=== PATIENT | female | born 1995 | race Caucasian/White ===

== ENCOUNTER → 2017-10-07 | Outpatient (CLI) | payer BC, MEDICAID | LOC: M RAD 07:45 | DX: Z32.01 Encounter for pregnancy test, result positive (principal) | CPT/HCPCS: 76801 ==

== ENCOUNTER 2017-11-01 16:39 | Emergency (ER) | payer BC, MEDICAID ==
[2017-11-01 18:05] LABS: BASO % 0.1 % (0.0-1.0); EOS # 0.1 10^3/uL (0.0-0.50); EOS % 0.5 % (0.0-3.0); HEMATOCRIT 36.1 % (36.0-47.0); HEMOGLOBIN 12.5 g/dl (12.0-15.5); IMMATURE GRANULOCYTE % 0.4 % (0-3.0); LYMPH # 2.7 10^3/uL (1.5-6.5); LYMPH % 23.9 % (24.0-44.0); MEAN CORPUSCULAR HEMOGLOBIN 29.8 pg (27.0-33.0); MEAN CORPUSCULAR HGB CONC 34.6 g/dl (32.0-36.5); MONO # 0.6 10^3/uL (0.0-0.8); MONO % 5.5 % (0.0-5.0); NEUTROPHILS # 7.8 10^3/uL (1.8-7.7); NEUTROPHILS % 69.6 % (36.0-66.0); PLATELET COUNT, AUTOMATED 266 10^3/uL (150-450); RED CELL DISTRIBUTION WIDTH 12.6 % (11.5-14.5); WHITE BLOOD COUNT 11.2 10^3/uL (4.0-10.0)
[2017-11-01 18:39] LABS: HCG, SERUM QUANTITATIVE 44538 MIU/ML
[2017-11-01 19:23] LABS: AMORPHOUS SEDIMENT RFX SMALL (NEGATIVE); KETONE, URINE AUTO RFX TRACE mg/dL (NEGATIVE); LEUKOCYTE ESTERASE UR AUTO RFX NEGATIVE (NEGATIVE); MUCUS, URINE RFX SMALL (NEGATIVE); NITRITE, URINE AUTO RFX NEGATIVE (NEGATIVE); RBC, URINE AUTO RFX 1 /HPF (0-3); SPECIFIC GRAVITY UR AUTO RFX 1.006 (1.002-1.035); SQUAM EPITHELIAL CELL UR AURFX 0 /HPF (0-6); WBC, URINE AUTO RFX 1 /HPF (0-3)
[2017-11-01 19:51] LABS: CHLAMYDIA DNA AMPLIFICATION NEGATIVE (NEGATIVE); GC DNA AMPLIFICATION NEGATIVE (NEGATIVE)
== END 2017-11-01 19:31 | disposition home or self-care (01) ==
LOC: M ED 16:39
DX: O26.851 Spotting complicating pregnancy, first trimester (principal); O24.419 Gestational diabetes mellitus in pregnancy, unspecified control; O15.00 Eclampsia complicating pregnancy, unspecified trimester; O99.281 Endocrine, nutritional and metabolic diseases complicating pregnancy, first trimester; Z3A.12 12 weeks gestation of pregnancy; Z79.899 Other long term (current) drug therapy; Z79.82 Long term (current) use of aspirin
CPT/HCPCS: 76801

== ENCOUNTER → 2017-11-27 | Outpatient (CLI) | payer BC, MEDICAID ==
[2017-11-27 14:46] LABS: CREATININE, URINE 71.6 MG/DL; URINE TOTAL PROTEIN 20.3 MG/DL (0-12)
[2017-11-27 21:12] LABS: CREATININE, SERUM 0.4 MG/DL (0.6-1.0)
[2017-11-27 21:14] LABS: CREATININE CLEARANCE, URINE 186.5 ML/MIN (75-115); TOTAL PROTEIN 24 HOUR URINE 304.5 MG/24HR (50-150); TOTAL VOLUME, URINE 1500 ML
== END ==
LOC: M LAB 13:31
DX: Z34.82 Encounter for supervision of other normal pregnancy, second trimester (principal); Z3A.00 Weeks of gestation of pregnancy not specified
CPT/HCPCS: 82575

== ENCOUNTER → 2017-12-18 | Outpatient (CLI) | payer BC, MEDICAID | LOC: M RAD 12:38 | DX: Z34.82 Encounter for supervision of other normal pregnancy, second trimester (principal) ==

== ENCOUNTER → 2018-01-11 | Outpatient (CLI) | payer BC, MEDICAID | LOC: M RAD 17:14 | DX: Z34.83 Encounter for supervision of other normal pregnancy, third trimester (principal) | CPT/HCPCS: 76816 ==

== ENCOUNTER → 2018-02-15 | Outpatient (CLI) | payer BC, MEDICAID | LOC: M RAD 11:55 | DX: Z34.82 Encounter for supervision of other normal pregnancy, second trimester (principal); Z36.89 Encounter for other specified antenatal screening; Z3A.28 28 weeks gestation of pregnancy | CPT/HCPCS: 76816 ==

== ENCOUNTER → 2018-02-18 | Outpatient (CLI) | payer BC, MEDICAID | LOC: M RAD 06:40 | DX: O32.1XX0 Maternal care for breech presentation, not applicable or unspecified (principal); Z36.89 Encounter for other specified antenatal screening; Z3A.28 28 weeks gestation of pregnancy | CPT/HCPCS: 76819 ==

== ENCOUNTER → 2018-02-26 | Outpatient (CLI) | payer BC, MEDICAID | LOC: M RAD 08:41 | DX: Z34.82 Encounter for supervision of other normal pregnancy, second trimester (principal); Z3A.29 29 weeks gestation of pregnancy | CPT/HCPCS: 76815 ==

== ENCOUNTER → 2018-03-05 | Outpatient (CLI) | payer BC, MEDICAID | LOC: M RAD 08:32 | DX: O26.843 Uterine size-date discrepancy, third trimester (principal); Z3A.30 30 weeks gestation of pregnancy; Z36.87 Encounter for antenatal screening for uncertain dates | CPT/HCPCS: 76819 ==

== ENCOUNTER → 2018-03-12 | Outpatient (CLI) | payer BC, MEDICAID | LOC: M RAD 12:47 | DX: O26.843 Uterine size-date discrepancy, third trimester (principal); Z3A.30 30 weeks gestation of pregnancy | CPT/HCPCS: 76815 ==

== ENCOUNTER 2018-03-26 18:16 | Outpatient (CLI) | payer BC, MEDICAID ==
[2018-03-26] MEDS: CALCIUM CARBONATE 500 MG CHEW U/D PO (18:58)
== END 2018-03-26 19:19 | disposition home or self-care (01) ==
LOC: M LDO 18:16
DX: Z34.83 Encounter for supervision of other normal pregnancy, third trimester (principal); Z3A.33 33 weeks gestation of pregnancy
CPT/HCPCS: 59025

== ENCOUNTER → 2018-03-26 | Outpatient (CLI) | payer BC, MEDICAID | LOC: M RAD 11:15 | DX: O26.843 Uterine size-date discrepancy, third trimester (principal); Z3A.33 33 weeks gestation of pregnancy | CPT/HCPCS: 76815 ==

== ENCOUNTER → 2018-04-02 | Outpatient (CLI) | payer BC, MEDICAID | LOC: M RAD 07:55 | DX: Z36.9 Encounter for antenatal screening, unspecified (principal); O26.843 Uterine size-date discrepancy, third trimester; Z3A.34 34 weeks gestation of pregnancy | CPT/HCPCS: 76819 ==

== ENCOUNTER → 2018-04-08 | Outpatient (CLI) | payer BC, MEDICAID | LOC: M RAD 10:03 | DX: O26.843 Uterine size-date discrepancy, third trimester (principal); Z3A.35 35 weeks gestation of pregnancy | CPT/HCPCS: 76815 ==

== ENCOUNTER → 2018-04-16 | Outpatient (REF) | payer BC, MEDICAID | LOC: M LAB REF 12:56 | DX: O09.213 Supervision of pregnancy with history of pre-term labor, third trimester (principal) | CPT/HCPCS: 87081 ==

== ENCOUNTER → 2018-04-16 | Outpatient (CLI) | payer BC, MEDICAID | LOC: M RAD 09:34 | DX: O26.843 Uterine size-date discrepancy, third trimester (principal); Z3A.36 36 weeks gestation of pregnancy | CPT/HCPCS: 76819 ==

== ENCOUNTER → 2018-04-22 | Outpatient (CLI) | payer BC, MEDICAID | LOC: M RAD 10:00 | DX: O26.843 Uterine size-date discrepancy, third trimester (principal); Z3A.37 37 weeks gestation of pregnancy | CPT/HCPCS: 76815 ==

== ENCOUNTER → 2018-04-30 | Outpatient (CLI) | payer BC, MEDICAID | LOC: M RAD 14:20 | DX: O26.843 Uterine size-date discrepancy, third trimester (principal); Z3A.36 36 weeks gestation of pregnancy | CPT/HCPCS: 76819 ==

== ENCOUNTER 2018-05-04 16:08 | Inpatient (IN) | payer BC, MEDICAID ==
[2018-05-04 17:50] LABS: HEMATOCRIT 31.1 % (36.0-47.0); HEMOGLOBIN 10.7 g/dl (12.0-15.5); MEAN CORPUSCULAR HEMOGLOBIN 29.6 pg (27.0-33.0); MEAN CORPUSCULAR HGB CONC 34.4 g/dl (32.0-36.5); MEAN CORPUSCULAR VOLUME 86.1 fl (80.0-96.0); PLATELET COUNT, AUTOMATED 226 10^3/uL (150-450); RED BLOOD COUNT 3.61 10^6/uL (4.00-5.40); RED CELL DISTRIBUTION WIDTH 13.2 % (11.5-14.5); WHITE BLOOD COUNT 8.2 10^3/uL (4.0-10.0)
[2018-05-04] MEDS ORDERED: OXYTOCIN 30 UNITS IN 0.9% NaCl 500ML IV BAG (J2590) As Ordered (18:47)
[2018-05-04] MEDS: LR 1,000 ML IV (18:50)
[2018-05-04] MEDS: OXYTOCIN DRIP 30 UNITS in APPROPRIATE DILUENT 1 EA IV (18:51)
[2018-05-05] MEDS: MORPHINE 10 MG/ML 1ML VIAL (J2270) IV (00:30)
[2018-05-05] MEDS: MORPHINE 10 MG/ML 1ML VIAL (J2270) SC (00:30)
[2018-05-05 00:36] LABS: ALT/SGPT 18 U/L (12-78); AST/SGOT 17 U/L (7-37); BILIRUBIN,TOTAL 0.1 MG/DL (0.2-1.0); CREATININE FOR GFR 0.56 MG/DL (0.55-1.30); GLOMERULAR FILTRATION RATE > 60.0 (>60); LDH LACTATE DEHYDROGENASE 153 U/L (84-246); URIC ACID 4.7 MG/DL (2.6-6.0)
[2018-05-05] MEDS: PROMETHAZINE INJ 25 MG/ML VIAL (J2550) IV (00:41)
[2018-05-05] MEDS: LR 1,000 ML IV ×4 (00:41→21:00)
[2018-05-05] MEDS ORDERED: ONDANSETRON 4MG/2ML VIAL (J2405) As Ordered ×2 (08:11→16:12)
[2018-05-05] MEDS: ONDANSETRON 4MG/2ML VIAL (J2405) IV (08:17)
[2018-05-05] MEDS ORDERED: OXYTOCIN INJ 10 UNITS/ML VIAL (J2590) As Ordered ×3 (16:10→16:35)
[2018-05-05] MEDS ORDERED: dexameTHASONE 4 MG/ML 1ML VIAL (J1100) As Ordered (16:12)
[2018-05-05] MEDS ORDERED: KETOROLAC 60 MG/2 ML VIAL (J1885) As Ordered (16:12)
[2018-05-05] MEDS ORDERED: BUPIVACAINE/DEXTROSE 0.75% 2 ML AMP As Ordered (16:14)
[2018-05-05] MEDS: BICITRA 30ML SOLN UDC PO (16:19)
[2018-05-05] MEDS ORDERED: MORPHINE PRES-FREE INJ 10 MG/10 ML VIAL (J2274) As Ordered (16:24)
[2018-05-05] MEDS ORDERED: NALBUPHINE HCL 10 MG/ML AMP (J2300) IV ×2 (16:52→18:30)
[2018-05-05] MEDS ORDERED: METOCLOPRAMIDE INJ 10MG/2ML VIAL (J2765) IV (16:52)
[2018-05-05] MEDS ORDERED: ONDANSETRON 4MG/2ML VIAL (J2405) IV ×3 (16:52→18:30)
[2018-05-05] MEDS ORDERED: NALOXONE INJ 0.4 MG/1 ML VIAL (J2310) IV ×2 (16:52)
[2018-05-05] MEDS ORDERED: ePHEDrine SULFATE 25 MG/5 ML(5MG/ML) SYRINGE As Ordered (17:07)
[2018-05-05] MEDS ORDERED: PHENYLephrine HCL 500 MCG/5 ML (100MCG/ML) SYRINGE (J2370) As Ordered (17:07)
[2018-05-05] MEDS ORDERED: OXYTOCIN 30 UNITS IN 0.9% NaCl 500ML IV BAG (J2590) As Ordered (18:14)
[2018-05-05] MEDS ORDERED: MEASLES,MUMPS,RUBELLA VACCINE INJ (MMR-II) (90707) SC (18:15)
[2018-05-05] MEDS ORDERED: PROMETHAZINE 25 MG TAB PO (18:15)
[2018-05-05] MEDS ORDERED: RHOGAM 300 MCG (1500 IU) INJ (J2790) IM (18:15)
[2018-05-05] MEDS ORDERED: PERCOCET 5MG/325MG TAB PO (18:30)
[2018-05-05] MEDS ORDERED: fentaNYL 100 MCG/2 ML INJECTION (J3010) IV (18:30)
[2018-05-05] MEDS ORDERED: MEPERIDINE INJ 25 MG/ML VIAL (J2175) IV (18:30)
[2018-05-05] MEDS ORDERED: HYDROMORPHONE HCL 0.5 MG/ 0.5 ML SYRINGE (J1170 PER 1) IV (18:30)
[2018-05-05] MEDS: OXYTOCIN DRIP 30 UNITS in APPROPRIATE DILUENT 1 EA IV (18:39)
[2018-05-05] MEDS: DOCUSATE SODIUM 100 MG CAP PO (21:00)
[2018-05-05] MEDS: KETOROLAC 30 MG/ML VIAL (J1885) IV (22:00)
[2018-05-06] MEDS: KETOROLAC 30 MG/ML VIAL (J1885) IV ×2 (03:44→09:27)
[2018-05-06] MEDS: LR 1,000 ML IV ×3 (05:00→21:00)
[2018-05-06 07:12] LABS: HEMATOCRIT 32.4 % (36.0-47.0); HEMOGLOBIN 10.7 g/dl (12.0-15.5); MEAN CORPUSCULAR HEMOGLOBIN 29.4 pg (27.0-33.0); PLATELET COUNT, AUTOMATED 160 10^3/uL (150-450); RED BLOOD COUNT 3.64 10^6/uL (4.00-5.40); RED CELL DISTRIBUTION WIDTH 13.2 % (11.5-14.5); WHITE BLOOD COUNT 10.9 10^3/uL (4.0-10.0)
[2018-05-06] MEDS: PRENATAL VITAMINS CHEWABLE TABLET PO (09:26)
[2018-05-06] MEDS: DOCUSATE SODIUM 100 MG CAP PO ×2 (09:26→21:03)
[2018-05-06] MEDS: SIMETHICONE 80 MG CHEW TAB PO (16:35)
[2018-05-06] MEDS: PERCOCET 5MG/325MG TAB PO ×2 (16:36→21:04)
[2018-05-06] MEDS: IBUPROFEN 800 MG TAB PO (19:19)
[2018-05-07] MEDS: IBUPROFEN 800 MG TAB PO ×2 (02:02→10:10)
[2018-05-07] MEDS: PERCOCET 5MG/325MG TAB PO (04:51)
[2018-05-07] MEDS: LR 1,000 ML IV (05:00)
[2018-05-07] MEDS: DOCUSATE SODIUM 100 MG CAP PO (07:34)
[2018-05-07] MEDS: PRENATAL VITAMINS CHEWABLE TABLET PO (07:46)
[2018-05-07] MEDS: ADACEL/BOOSTRIX VACCINE (DIPHTH/PERTUSS/ACELL/TETANUS)0.5ML SYR (90715) IM (07:49)
[2018-05-07] MEDS: INFLUENZA QUADRIVALENT PF VACCINE 0.5ML SYRINGE (90686) IM (07:52)
== END 2018-05-07 12:05 | disposition home or self-care (01) | DRG 540 ==
LOC: M LDI 16:08 → M OBS 05-05 19:00
PROC: 10D00Z1 Extraction of Products of Conception, Low, Open Approach (ICD-10-PCS; principal; 2018-05-05 16:40)
PROC: 3E033VJ Introduction of Other Hormone into Peripheral Vein, Percutaneous Approach (ICD-10-PCS; 2018-05-05 16:40)
DX: O36.5930 Maternal care for other known or suspected poor fetal growth, third trimester, not applicable or unspecified (principal); O13.4 Gestational [pregnancy-induced] hypertension without significant proteinuria, complicating childbirth; O34.211 Maternal care for low transverse scar from previous cesarean delivery; O61.0 Failed medical induction of labor; Z37.0 Single live birth; Z3A.39 39 weeks gestation of pregnancy

== ENCOUNTER → 2018-08-17 | Outpatient (REF) | payer BC, MEDICAID ==
[~2018-08-17] MED LIST: ASPI81TA85 PO; BIRTH CONTROL PILL PO; IBUP80TA PO; IRON27TA2 PO; OXYC1TAB23 PO; PERCOCET PO; PRENTAB9 PO; TUMS500C PO; ZANT150T15 PO; [UNRECOGNIZED DRUG - OTHER] PO
== END ==
LOC: M LAB REF 19:23
PROVIDERS: ATTEND Physician Assistant Medical
DX: J02.9 Acute pharyngitis, unspecified (principal)

== ENCOUNTER 2020-04-02 16:15 | Emergency (ER) | payer BC, MEDICAID ==
[~2020-04-02] VITALS: Ht 157.5 cm; Wt 108.6 kg
[2020-04-02 16:15] VITALS: BP 143/86
[~2020-04-02 16:15] MED LIST changes: -ASPI81TA85 PO; +ASPI81TA86 PO
[2020-04-02] MEDS ORDERED: [UNRECOGNIZED DRUG - OTHER] (16:26)
[2020-04-02] MEDS ORDERED: pepcid (16:26)
== END 2020-04-02 17:00 | disposition admitted as inpatient to this hospital (09) ==
LOC: M ED 16:15
DX: Z53.21 Procedure and treatment not carried out due to patient leaving prior to being seen by health care provider (principal); R07.9 Chest pain, unspecified

== ENCOUNTER 2020-04-02 16:58 | Outpatient (CLI) | payer BC, MEDICAID, OTHER ==
[~2020-04-02] VITALS: Ht 157.5 cm; Wt 108.3 kg
[~2020-04-02 16:58] MED LIST changes: +[UNRECOGNIZED DRUG - OTHER]; +pepcid
[2020-04-02 17:23] VITALS: BP 129/80
[2020-04-02 17:42] VITALS: BP 120/78
[2020-04-02 18:40] VITALS: BP 135/77
--- NOTE | 2020-04-02 19:08 | IPNPDOC ---
Text Note Date of Service The patient was seen on 04/02/20. NOTE Subjective: Yolanda is a 25-year-old female who is a at 37 weeks gestation with an CATRINA of 04/23/20 presents to L&D with complaints of elevated BP's and chest pain that occurs intermittently and radiates to her right shoulder. She reports this has been occurring for a few weeks at night but states it has gotten slightly worse tonight. She does reports occasional contractions and a ctive movement. She denies vaginal bleeding or leaking of fluid. She does has reflux and has taken Pepcid. Reports her pain occurs mainly at night. She receives care in [place]. No records are available to review. Her has been complicated by a history of 2 prior sections, history of A1GDM, and history of severe preeclampsia. Prior pregnancies: 01/13/2017: section: breech, GDM and severe preeclampsia at 34.5 weeks, male 5 lbs 1 oz. 05/05/2018: section at 39 .1 weeks gestation of living male weighting 6 lbs 5 oz. Medical history: obesity, GERD-taking Pepcid and anemia during Surgical history: tonsils and adenoids; eyelid surgery Family history: father with HTN; maternal aunt with lung cancer and maternal grandfather with lung cancer Social history: single, with FOB, homemaker. Denies history of alcohol abuse, drug abuse and reports she has never smoked. Objective: VS stable. FHR 125, moderate variability, positive accelerations, no decelerations. Contractions: occasional. SVE: closed/thick with no show. A+O x3. Respiratory rate is regular and CTA bilaterally. Cardiovascular: slight murmur noted with slight tachycardia. Abdomen: gravid and non-tender to palpation. Extremities: generalized edema, no pitting edema, no clonus, and +2 reflexes. Assessment: IUP at 37 weeks, GERD resulting in chest pain, not in labor. Plan: EKG ordered. Bicitra ordered. UA sent. EKG is slightly abnormal but normal for with tachycardia (103 bpm) and QRS-t angle changes. The hospitalist was notified (Dr. Perez) to review EKG and reported that it was a normal variation during . Dr. Tom was notified of all findings. She reports her chest pain improved and has gone away after taking Bicitra 30 mg PO. She has an appointment on with her OB. Patient discharged to home with precautions. Reviewed access to care, kick count, labor signs, preeclamptic signs, and danger signs to report. She is to follow-up for her routine OB appointment. VS,Fishbone, I+O VS, Fishbone, I+O Vital Signs Vital Signs Label Value Date Time Patient Temperature 98.2 degrees F 04/02/20 172 Temperature Source Temporal 04/02/20 1723 Pulse 99 04/02/20 1723 Respiratory Rate 18 bpm 04/02/20 172 Blood Pressure Assessment 129/80 (96) 04/02/20 172 Source Automatic Cuff (NIBP) Item Value Date Time Oxygen Delivery Method Room Air 04/02/201722 Item Value Date Time Urine Color YELLOW 04/02/201854 Urine Appearance CLEAR 04/02/201854 Urine pH 7.0 UNITS 04/02/201854 Urine Specific [place] 1.006 04/02/201854 Urine Protein NEGATIVE mg/dL 04/02/201854 Urine Glucose (Auto)(UA) NEGATIVE mg/dL 04/02/201854 Urine Ketones (Auto) TRACE mg/dL H 04/02/201854 Urine Blood NEGATIVE 04/02/201854 Urine Nitrite NEGATIVE 04/02/201854 Urine Bilirubin NEGATIVE 04/02/201854 Urine Urobilinogen 0.2 mg/dL 04/02/201854 Urine Leukocyte Esterase (Auto) NEGATIVE 04/02/201854 Urine WBC (Auto) 0 /HPF 04/02/201854 Urine RBC (Auto) 0 /HPF 04/02/201854 Urine Hyaline Casts (Auto) 0 /LPF 04/02/201854 Urine Bacteria (Auto) 1+ H 04/02/201854 Urine Squamous Epithelial Cells 0 /HPF 04/02/201854 JEAN HAZEL CNM Apr 02, 2020 19:08
[2020-04-02] MEDS ORDERED: BICITRA 30ML SOLN UDC PO ONE (19:15)
[2020-04-02 19:51] LABS: APPEARANCE, URINE CLEAR (CLEAR); BACTERIA, URINE AUTO 1+ (NEGATIVE); BILIRUBIN, URINE AUTO NEGATIVE (NEGATIVE); BLOOD, URINE BLOOD NEGATIVE (NEGATIVE); COLOR, URINE YELLOW (YELLOW); GLUCOSE, URINE (UA) AUTO NEGATIVE (NEGATIVE); KETONE, URINE AUTO TRACE mg/dL (NEGATIVE); LEUKOCYTE ESTERASE, URINE AUTO NEGATIVE (NEGATIVE); NITRITE, URINE AUTO NEGATIVE (NEGATIVE); PROTEIN, URINE AUTO NEGATIVE (NEGATIVE); RBC, URINE AUTO 0 /HPF (0-3); SPECIFIC GRAVITY URINE AUTO 1.006 (1.002-1.035); SQUAMOUS EPITHELIAL CELL UR AU 0 /HPF (0-6); UROBILINOGEN, URINE AUTO 0.2 mg/dL (0.0-2.0); WBC, URINE AUTO 0 /HPF (0-3)
--- NOTE | 2020-04-10 06:14 | ECGEPIP ---
[facility] Test Date: 2020-04-02 Pat Name: BRIDGETT ROBERTSON Department: Room: - Gender: Female Reports Analyst: SUNI PANDEY : 1995 Requested By: JEAN Matthews CNM Order Number: [id number] Reading MD: Jacob Ortega Measurements Intervals [place] Rate: 103 P: 11 AR: 144 QRS: 70 QRSD: 80 T: -5 QT: 328 QTc: 431 Interpretive Statements Sinus tachycardia Nonspecific T-wave abnormalities Comparison tracing not on file Electronically Signed on 04-10-2020 6:13:46 EDT by Jacob Ortega
== END 2020-04-02 21:05 | disposition home or self-care (01) ==
LOC: M LDO 16:58
PROVIDERS: ATTEND Advanced Practice Midwife
DX: O13.3 Gestational [pregnancy-induced] hypertension without significant proteinuria, third trimester (principal); O99.613 Diseases of the digestive system complicating pregnancy, third trimester; O99.413 Diseases of the circulatory system complicating pregnancy, third trimester; K21.9 Gastro-esophageal reflux disease without esophagitis; Z3A.37 37 weeks gestation of pregnancy